=== PATIENT | male | born 1970 | race African-American/Black ===

== ENCOUNTER 2019-04-22 01:42 | Emergency (ER) | payer BC, OTHER ==
[~2019-04-22] VITALS: Ht 182.9 cm; Wt 135.2 kg
--- OUTSIDE RECORDS SUMMARY | 2019-04-22 01:47 | XMS REPORT | Continuity of Care Document ---
Author Organization Unknown Address Unknown Allergies There is no data. Medications There is no data. Problems There is no data. Procedures There is no data. Results There is no data. Encounters ACCT No. Visit Date/Time Discharge Status Pt. Type Provider Facility Loc./Unit Complaint [id number] 02/23/2019 17:30:00 02/23/2019 23:59:59 CLS Outpatient ZAFAR COLLIER LAC [facility]
[2019-04-22] MEDS ORDERED: diphenhydrAMINE 25 MG TAB (BENADRYL) PO ONE (02:00)
[2019-04-22] MEDS ORDERED: DEXAMETHASONE 10 MG/ML (DECADRON) 1 ML VIAL IM ONE (02:00)
[2019-04-22] MEDS ORDERED: FAMOTIDINE 20 MG (PEPCID) TABLET PO ONE (02:00)
--- NOTE | 2019-04-22 02:09 | ED General ---
General Chief Complaint: Allergic Reaction Stated Complaint: ALLERGIC REACTION Nursing Triage Note: PT TOOK AN OTC SLEEP AID AND FEELS LIKE HIS THROAT AND TONGUE ARE SWOLLEN Nursing Sepsis Screen: No Definite Risk Source of Information: Patient Exam Limitations: No Limitations History of Present Illness Date Seen by Provider: Apr 22, 2019 Time Seen by Provider: 01:45 Initial Comments The patient is a pleasant 48-year-old male presents for evaluation of possible allergic reaction. He states that he took melatonin [id number] to help with sleep tonight. While later he felt like his tongue and throat were swelling and that he was having some shortness of breath. Drug allergies. She does have a history of asthma and uses an inhaler at home and felt like he was wheezing slightly. He is alert and oriented 4, calm, appears to be in no distress. He denies any other potential allergens. He is speaking in full sentences and appears to be breathing normally. Timing/Duration: 1 Hour Severity: Mild Modifying Factors: improves with Medication (Melatonin just before symptoms began) Associated Systoms: Shortness of Air Allergies and Home Medications Allergies Coded Allergies: No Known Drug Allergies (Unverified , 04/22/19) Patient Home Medication List Home Medication List Reviewed: Yes Review of Systems Review of Systems Constitutional: no symptoms reported EENTM: throat swelling (feels like tongue and throat swelling) Respiratory: short of breath Cardiovascular: no symptoms reported Gastrointestinal: no symptoms reported Genitourinary: no symptoms reported Musculoskeletal: no symptoms reported Skin: no symptoms reported Psychiatric/Neurological: No Symptoms Reported Hematologic/Lymphatic: No Symptoms Reported Immunological/Allergic: no symptoms reported All Other Systems Reviewed Negative Unless Noted: Yes Past Vaexwwv-Nyayov-Ujoidb Hx Past Med/Social Hx: Reviewed Nursing Past Med/Soc Hx Patient Social History Recent Foreign Travel: No Contact w/Someone Who Travel: No Recent Infectious Disease Expo: No Physical Exam Vital Signs Vital Signs - First Documented 04/22/19 01:45 Temp 97.2 Pulse 85 Resp 18 B/P (MAP) 127/92 (104) Pulse Ox 99 O2 Delivery Room Air Capillary Refill : Less Than 3 Seconds Height, Weight, BMI Height: 6'0" Weight: 298lbs. oz. 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 Skin: Normal Color, Warm/Dry Lymphatic: No Adenopathy Progress/Results/Core Measures Suspected Sepsis Recent Fever Within 48 Hours: No Infection Criteria Present: None New/Unexplained Altered Menta: No Sepsis Screen: No Definite Risk SIRS Temperature:97.2 Pulse: 85 Respiratory Rate: 18 Blood Pressure 127 /92 Mean: 104 Results/Orders My Orders Orders - JOHN WEBBER DO Diphenhydramine Tablet (Benadryl Tablet) (04/22/19 02:00) Famotidine Tablet (Pepcid Tablet) (04/22/19 02:00) Dexamethasone Injection (Decadron Inject (04/22/19 02:00) Vital Signs/I&O 04/22/19 01:45 Temp 97.2 Pulse 85 Resp 18 B/P (MAP) 127/92 (104) Pulse Ox 99 O2 Delivery Room Air Capillary Refill : Less Than 3 Seconds Blood Pressure Mean: 104 Progress Note : Progress Note @0215 - No sign of tongue/throat swelling noted. However, given the pt's history if a new medication and the feeling of oral swelling, allergic reaction medications were given. The pt feels comfortable going home at this time. He will receive an rx for prednisone and will stop taking the melatonin. Advised the patient to return to the emergency department immediately for new or worsening symptoms. Departure Impression Primary Impression: Allergic reaction Disposition: HOME, SELF-CARE Condition: Stable Departure-Patient Inst. Decision time for Depature: 02:18 Referrals: NO,LOCAL PHYSICIAN (PCP) Primary Care Physician Patient Instructions: Drug Allergy Add. Discharge Instructions: Take the medicine as prescribed. Follow-up with your doctor the next 2-3 days. Return to the ER immediately for difficulty breathing, new or worsening symptoms. Scripts Prednisone (Prednisone) 20 Mg Tab 40 MG PO DAILY for 5 Days, #6 TAB 0 Refills Prov: JOHN WEBBER DO 04/22/19 JOHN WEBBER DO Apr 22, 2019 02:09
[2019-04-22] MEDS ORDERED: PRD20T PO (02:16)
[2019-04-22 02:22] VITALS: BP 127/92
[2019-04-22] MEDS ORDERED: AMOX500C2 PO (02:24)
== END 2019-04-22 02:27 | disposition home or self-care (01) ==
LOC: ER FS 01:44
DX: T78.40XA Allergy, unspecified, initial encounter (principal); J45.909 Unspecified asthma, uncomplicated
CPT/HCPCS: 96372; 99283